=== PATIENT | female | born 1985 | race Asian ===

== ENCOUNTER 2018-04-17 11:30 | Emergency (ER) | payer MEDICAID, OTHER ==
[2018-04-17] MEDS ORDERED: PHENYLEPHRINE 0.25% NASAL SPR 15 ML As Ordered ×2 (12:26)
== END 2018-04-17 13:44 | disposition home or self-care (01) ==
LOC: M ED 11:30
DX: R04.0 Epistaxis (principal); Z79.899 Other long term (current) drug therapy
CPT/HCPCS: 99283

== ENCOUNTER 2018-06-04 18:05 | Emergency (ER) | payer MEDICAID | END 2018-06-04 21:24 | disposition home or self-care (01) | LOC: M ED 18:05 | DX: S60.00XA Contusion of unspecified finger without damage to nail, initial encounter (principal); W23.0XXA Caught, crushed, jammed, or pinched between moving objects, initial encounter; Y92.018 Other place in single-family (private) house as the place of occurrence of the external cause; Z79.899 Other long term (current) drug therapy; Z79.51 Long term (current) use of inhaled steroids | CPT/HCPCS: 73130 ==

== ENCOUNTER → 2019-10-11 | Outpatient (CLI) | payer MEDICAID ==
[~2019-10-11] MED LIST: AFRI0.056; FLON1SPR; ZYRT10CA PO
[2019-10-11 17:39] LABS: BASO % 0.4 % (0.0-1.0); EOS % 0.5 % (0.0-3.0); HEMATOCRIT 34.3 % (36.0-47.0); HEMOGLOBIN 11.9 g/dl (12.0-15.5); LYMPH # 2.2 10^3/uL (1.5-5.0); LYMPH % 25.7 % (24.0-44.0); MEAN CORPUSCULAR HEMOGLOBIN 31.2 pg (27.0-33.0); MEAN CORPUSCULAR HGB CONC 34.7 g/dl (32.0-36.5); MEAN CORPUSCULAR VOLUME 89.8 fl (80.0-96.0); MONO # 0.7 10^3/uL (0.0-0.8); NEUTROPHILS # 5.6 10^3/uL (1.5-8.5); NEUTROPHILS % 65.2 % (36.0-66.0); PLATELET COUNT, AUTOMATED 234 10^3/uL (150-450); RED BLOOD COUNT 3.82 10^6/uL (4.00-5.40); WHITE BLOOD COUNT 8.5 10^3/uL (4.0-10.0)
[2019-10-11 19:56] LABS: CHLAMYDIA DNA AMPLIFICATION NEGATIVE (NEGATIVE); GC DNA AMPLIFICATION NEGATIVE (NEGATIVE)
[2019-10-13 10:02] LABS: HIV 1&2 SCREEN CENTAUR NEGATIVE (NEGATIVE); RUBELLA IgG QUALITATIVE IMMUNE (IMMUNE)
== END ==
LOC: M SMT 14:50
PROVIDERS: ATTEND Advanced Practice Midwife
DX: Z34.81 Encounter for supervision of other normal pregnancy, first trimester (principal); Z36.89 Encounter for other specified antenatal screening

== ENCOUNTER → 2019-11-04 | Outpatient (CLI) | payer MEDICAID, SELFPAY ==
--- NOTE | 2019-11-04 11:28 | REP ---
Clinical: Anatomical evaluation. Comparison: None. Findings: Examination demonstrates a single live intrauterine in cephalic presentation. motion is identified by technologist. Placenta is noted anterior and grade zero without evidence for placenta previa or abruption. Amniotic fluid volume is normal. Cervix measures 4.4 cm in length and appears closed. No evidence for nuchal cord. Gestational age by LMP 19 weeks 0 days with ALEJANDRINA 03/30/2020 . Gestational age by current measurements 18 weeks 0 days with ALEJANDRINA 04/06/2020 . FHR equals 151 beats per minute. BPD 4.1 cm 18 weeks 2 days HC 14.6 cm 17 weeks 5 days AC 12.4 cm 18 weeks 0 days FL 2.5 cm 217 weeks 4 days HL 2.5 cm 18 weeks 0 days HC/AC ratio 1.18 Estimated weight 212th grams ( 8th percentile). Anatomical assessment demonstrates normal structures including cranium, choroid plexus, cavum, cerebellum/posterior fossa, lungs, stomach, cord insertion/three-vessel cord, kidneys/bladder, spine, and extremities. Impression: 1. Single live intrauterine in cephalic presentation demonstrating appropriate interval growth. 2. Limited evaluation of the facial features, heart/ventricular outflow tracts, and diaphragm warrants reevaluation and follow-up. Electronically Signed by Fadi Daly MD 11/04/2019 11:19 A
== END ==
LOC: M RAD 09:33
PROVIDERS: ATTEND Advanced Practice Midwife
DX: Z34.82 Encounter for supervision of other normal pregnancy, second trimester (principal); Z36.89 Encounter for other specified antenatal screening; Z3A.19 19 weeks gestation of pregnancy

== ENCOUNTER → 2019-11-08 | Outpatient (REF) | payer OTHER ==
[2019-11-08 19:15] LABS: APPEARANCE, URINE CLEAR (CLEAR); BACTERIA, URINE AUTO 1+ (NEGATIVE); BILIRUBIN, URINE AUTO NEGATIVE (NEGATIVE); BLOOD, URINE BLOOD 2+ (NEGATIVE); COLOR, URINE STRAW (YELLOW); GLUCOSE, URINE (UA) AUTO NEGATIVE (NEGATIVE); KETONE, URINE AUTO NEGATIVE (NEGATIVE); LEUKOCYTE ESTERASE, URINE AUTO NEGATIVE (NEGATIVE); NITRITE, URINE AUTO NEGATIVE (NEGATIVE); PROTEIN, URINE AUTO NEGATIVE (NEGATIVE); RBC, URINE AUTO 2 /HPF (0-3); SPECIFIC GRAVITY URINE AUTO 1.009 (1.002-1.035); SQUAMOUS EPITHELIAL CELL UR AU 2 /HPF (0-6); UROBILINOGEN, URINE AUTO 0.2 mg/dL (0.0-2.0); WBC, URINE AUTO 1 /HPF (0-3)
== END ==
LOC: M SFHCPLAZ 17:01
PROVIDERS: ATTEND Obstetrics & Gynecology
DX: R31.9 Hematuria, unspecified (principal)

== ENCOUNTER → 2019-11-22 | Outpatient (CLI) | payer MEDICAID ==
--- NOTE | 2019-11-22 10:08 | REP ---
Clinical: Anatomical evaluation. Comparison: 11/04/2019 Findings: Examination demonstrates a single live intrauterine in transverse (head to maternal right) presentation. motion is identified by technologist. Placenta is noted posterior and grade zero without evidence for placenta previa or abruption. Amniotic fluid volume is normal. Cervix measures 4.4 cm in length and appears closed. No evidence for nuchal cord. Gestational age by LMP 21 weeks 4 days with ALEJANDRINA 03/30/2020 . Gestational age by current measurements 20 weeks 5 days with ALEJANDRINA 04/05/2020 . FHR equals 144 beats per minute. Estimated weight 373 grams ( 19th percentile). Anatomical assessment demonstrates normal structures including cranium, choroid plexus, cavum, cerebellum/posterior fossa, facial features, lungs, ventricular outflow tracts, diaphragm, stomach, cord insertion/three-vessel cord, kidneys/bladder, and extremities. Impression: 1. Single live intrauterine in transverse lie demonstrating appropriate interval growth. 2. Limited evaluation of the heart again noted. Remainder of the anatomical assessment is complete and normal. Electronically Signed by Fadi Daly MD 11/22/2019 10:00 A
== END ==
LOC: M RAD 09:00
PROVIDERS: ATTEND Obstetrics & Gynecology
DX: Z34.92 Encounter for supervision of normal pregnancy, unspecified, second trimester (principal); Z3A.21 21 weeks gestation of pregnancy

== ENCOUNTER → 2019-12-10 | Outpatient (REF) | payer OTHER | LOC: M SFHCWAGY 17:07 | PROVIDERS: ATTEND Advanced Practice Midwife | DX: Z34.92 Encounter for supervision of normal pregnancy, unspecified, second trimester (principal); Z36.89 Encounter for other specified antenatal screening ==

== ENCOUNTER → 2019-12-15 | Outpatient (CLI) | payer OTHER ==
--- NOTE | 2019-12-16 02:22 | REP ---
Clinical: Anatomical evaluation. Comparison: 11/22/2019 . Findings: Examination demonstrates a single live intrauterine in breech presentation. motion is identified by technologist. Placenta is noted posterior and grade I without evidence for placenta previa or abruption. Amniotic fluid volume is normal. Cervix measures 5.6 cm in length and appears closed. Nuchal cord cannot be excluded. Gestational age by LMP 24 weeks 6 days with ALEJANDRINA 03/30/2020 . Gestational age by current measurements 23 weeks 6 days with ALEJANDRINA 04/06/2020 . FHR equals 158 beats per minute. Estimated weight 678 grams ( 27th percentile). Anatomical assessment demonstrates normal structures including cranium, choroid plexus, cavum, cerebellum/posterior fossa, facial features, lungs, four-chamber heart/ventricular outflow tracts, diaphragm, stomach, cord insertion/three-vessel cord, kidneys/bladder, spine, and extremities. Impression: Single live intrauterine in breech presentation demonstrating appropriate interval growth. 2. Nuchal cord cannot be excluded. 3. Anatomical assessment is complete and normal. Electronically Signed by Fadi Daly MD 12/16/2019 02:13 A
== END ==
LOC: M RAD 12:27
PROVIDERS: ATTEND Advanced Practice Midwife
DX: O32.1XX0 Maternal care for breech presentation, not applicable or unspecified (principal); Z36.89 Encounter for other specified antenatal screening; Z3A.24 24 weeks gestation of pregnancy

== ENCOUNTER → 2019-12-27 | Outpatient (CLI) | payer OTHER ==
[2019-12-27 13:41] LABS: HEMATOCRIT 34.3 % (36.0-47.0); MEAN CORPUSCULAR HEMOGLOBIN 30.9 pg (27.0-33.0); MEAN CORPUSCULAR HGB CONC 32.1 g/dl (32.0-36.5); MEAN CORPUSCULAR VOLUME 96.3 fl (80.0-96.0); PLATELET COUNT, AUTOMATED 212 10^3/uL (150-450); RED BLOOD COUNT 3.56 10^6/uL (4.00-5.40); WHITE BLOOD COUNT 9.4 10^3/uL (4.0-10.0)
== END ==
LOC: M PLALAB 11:00
PROVIDERS: ATTEND Advanced Practice Midwife
DX: Z34.82 Encounter for supervision of other normal pregnancy, second trimester (principal); Z36.89 Encounter for other specified antenatal screening

== ENCOUNTER → 2020-01-14 | Outpatient (REF) | payer OTHER | LOC: M SFHCWAGY 13:36 | PROVIDERS: ATTEND Advanced Practice Midwife | DX: Z36.89 Encounter for other specified antenatal screening (principal); Z3A.00 Weeks of gestation of pregnancy not specified ==

== ENCOUNTER → 2020-02-07 | Outpatient (CLI) | payer OTHER ==
[2020-02-07 20:13] LABS: BASO % 0.3 % (0.0-1.0); EOS % 0.4 % (0.0-3.0); HEMATOCRIT 36.5 % (36.0-47.0); LYMPH # 2.1 10^3/uL (1.5-5.0); LYMPH % 21.8 % (24.0-44.0); MEAN CORPUSCULAR HGB CONC 32.9 g/dl (32.0-36.5); MEAN CORPUSCULAR VOLUME 94.3 fl (80.0-96.0); MONO % 10.2 % (0.0-5.0); NEUTROPHILS # 6.3 10^3/uL (1.5-8.5); NEUTROPHILS % 66.4 % (36.0-66.0); PLATELET COUNT, AUTOMATED 207 10^3/uL (150-450); RED BLOOD COUNT 3.87 10^6/uL (4.00-5.40); WHITE BLOOD COUNT 9.5 10^3/uL (4.0-10.0)
[2020-02-07 20:41] LABS: BLOOD UREA NITROGEN 12 MG/DL (7-18); CALCIUM LEVEL 8.7 MG/DL (8.5-10.1); CARBON DIOXIDE LEVEL 30 MEQ/L (21-32); CHLORIDE LEVEL 104 MEQ/L (98-107); CREATININE FOR GFR 0.29 MG/DL (0.55-1.30); GLOMERULAR FILTRATION RATE > 60.0 (>60); GLUCOSE, FASTING 92 MG/DL (70-100); POTASSIUM SERUM 4.1 MEQ/L (3.5-5.1); SODIUM LEVEL 137 MEQ/L (136-145)
== END ==
LOC: M WUC 15:35
PROVIDERS: ATTEND Nurse Practitioner Family
DX: R30.0 Dysuria (principal); R31.9 Hematuria, unspecified; Z33.1 Pregnant state, incidental

== ENCOUNTER → 2020-02-29 | Outpatient (REF) | payer OTHER | LOC: M SFHCWAGY 16:59 | PROVIDERS: ATTEND Advanced Practice Midwife | DX: Z34.93 Encounter for supervision of normal pregnancy, unspecified, third trimester (principal); Z36.89 Encounter for other specified antenatal screening ==

== ENCOUNTER 2020-04-05 12:14 | Inpatient (IN) | payer OTHER ==
[~2020-04-05] VITALS: Ht 162.6 cm; Wt 80.7 kg
[2020-04-05 12:27] VITALS: BP 107/60
[2020-04-05] MEDS ORDERED: miSOPROStol 50 MCG 1/2 TAB (S0191) PO ONE (13:00)
[2020-04-05 13:47] VITALS: BP 99/56
[2020-04-05 13:53] LABS: HEMATOCRIT 38.2 % (36.0-47.0); HEMOGLOBIN 13.3 g/dl (12.0-15.5); MEAN CORPUSCULAR HEMOGLOBIN 31.2 pg (27.0-33.0); MEAN CORPUSCULAR HGB CONC 34.8 g/dl (32.0-36.5); MEAN CORPUSCULAR VOLUME 89.7 fl (80.0-96.0); PLATELET COUNT, AUTOMATED 179 10^3/uL (150-450); RED BLOOD COUNT 4.26 10^6/uL (4.00-5.40); WHITE BLOOD COUNT 7.1 10^3/uL (4.0-10.0)
--- NOTE | 2020-04-05 15:40 | HPE ---
DATE OF ADMISSION: 04/05/2020 Maddy Ledezma is a 34-year-old, 2, para 1-0-0-1. She is at 40-6/7 weeks gestation with an estimated date of confinement (EDC) of 03/30/2020 based on last menstrual period and confirmed by first-trimester ultrasound. She presents to labor and delivery today with a report of possible rupture of membranes at approximately 0900. She denies vaginal bleeding. She denies any continued leakage, and her fetus has been active. She denies any painful contractions. She does report some mild cramping. Her care was initiated at [facility] in the first trimester. Her course has been uncomplicated. OBSTETRICAL HISTORY: On , 41 weeks gestation, spontaneous vaginal delivery following induction of labor for an 8-pounds 2-ounce female. OBSTETRIC LABORATORIES: O positive, antibody screen negative, RPR negative, rubella immune, HIV negative, hepatitis C antibody not negative, hepatitis B surface antigen negative, gonorrhea and chlamydia negative. Gestational diabetic screening normal at 108. In October 2019, urine culture no growth. GBS negative. PAST MEDICAL HISTORY: Noncontributory. SURGERIES: Bladder surgery and polyp removal. FAMILY HISTORY: Stomach cancer. SOCIAL HISTORY: The patient is . Her is supportive and at bedside. She is a nonsmoker. Denies alcohol and drug use. No history of sexually transmitted infections, and she denies history of abuse, physical, sexual, or emotional. ALLERGIES: No known drug allergies. CURRENT MEDICATIONS: vitamins. OBJECTIVE: Pulse 106, blood pressure (BP) 107/60. Temperature and respirations have not been recorded as of yet. heart rate is 150 with moderate variability, positive accelerations, negative decelerations. There is an occasional contraction. Her abdomen is gravid, cephalic presentation confirmed with Hai's and bedside ultrasound. Estimated weight 7 pounds 11 ounces to 8 pounds 1 ounce. Sterile speculum exam: Negative pooling, negative Nitrazine, and negative ferning. Sterile vaginal exam: 2, 75, and -2 station. ASSESSMENT: Intrauterine at 40-6/7 weeks. heart rate is category 1. Post-term . PLAN: Offered induction of labor to the patient for post-term . She is on the schedule for tomorrow for induction of labor. She desires to stay today and get the induction started. I did review risks, benefits, alternatives with the patient. All of her questions have been answered regarding induction. Routine labs. Out of bed ad bc. Regular diet right now. One dose of misoprostol 50 mcg by mouth and then likely start intravenous (IV) Pitocin for labor induction. The patient will likely consider an epidural for her labor coping, and I will consider assisted rupture of membranes for labor augmentation once epidural is placed. The patient has been verbally consented for emergency surgery and blood products if they are necessary. I do anticipate cervical ripening, labor, and a spontaneous vaginal delivery.
[2020-04-05 15:58] VITALS: BP 92/61
[2020-04-05] MEDS ORDERED: OXYTOCIN DRIP 30 UNITS in IV 1 EA IV SCH (17:00)
[2020-04-05] MEDS ORDERED: LR 1,000 ML IV SCH (17:00)
[2020-04-05 17:57] VITALS: BP 105/65
[2020-04-05] MEDS ORDERED: FENTANYL 2MCG/ML ROPIVACAINE 0.2% IN 0.9% NACL 100ML IVBAG As Ordered ONE (22:17)
[2020-04-05] MEDS ORDERED: LACTATED RINGER'S 1000 ML IV ONE (22:30)
[2020-04-06] MEDS ORDERED: OXYTOCIN DRIP 30 UNITS in IV 1 EA IV SCH (01:26)
[2020-04-06] MEDS ORDERED: DIBUCAINE 1% OINTMENT 30GM TOP PRN (01:30)
[2020-04-06] MEDS ORDERED: METHYLERGONOVINE MALEATE 0.2 MG TAB PO PRN (01:30)
[2020-04-06] MEDS ORDERED: DOCUSATE SODIUM 100 MG CAP PO PRN (01:30)
[2020-04-06] MEDS ORDERED: ACETAMINOPHEN 500 MG TAB PO PRN (01:30)
[2020-04-06] MEDS ORDERED: ACETAMINOPHEN TAB 650MG DOSE (2X325MG) PO PRN (01:30)
[2020-04-06] MEDS ORDERED: MEASLES,MUMPS,RUBELLA VACCINE INJ (MMR-II) (90707) SC SCH (01:30)
[2020-04-06] MEDS ORDERED: IBUPROFEN 800 MG TAB PO PRN (01:30)
[2020-04-06] MEDS ORDERED: RHOGAM 300 MCG (1500 IU) INJ (J2790) IM SCH (01:30)
[2020-04-06] MEDS ORDERED: IBUPROFEN 600 MG TAB PO PRN (01:30)
[2020-04-06] MEDS ORDERED: EPIDURAL COMMENT XX SCH (02:15)
[2020-04-06] MEDS ORDERED: ONDANSETRON 4MG/2ML VIAL IV PRN (02:15)
[2020-04-06] MEDS ORDERED: diphenhydrAMINE 50MG/ML VIAL (J1200) IV PRN (02:15)
[2020-04-06] MEDS ORDERED: FENTANYL/ROPIVACAINE/NACL BAG 100 ML EPIDURAL SCH (02:15)
[2020-04-06] MEDS ORDERED: EPIDURAL/PCA KEYS XX PRN (02:15)
[2020-04-06] MEDS ORDERED: LACTATED RINGER'S 1000 ML IV PRN (02:15)
[2020-04-06] MEDS ORDERED: ePHEDrine SULFATE 25 MG/5 ML(5MG/ML) SYRINGE IV PRN (02:15)
[2020-04-06] MEDS ORDERED: REFRIGERATOR IV KEYS XX PRN (02:15)
[2020-04-06] MEDS ORDERED: NALOXONE INJ 0.4MG/1ML VIAL (J2310 PER 1MG) IV PRN (02:15)
[2020-04-06 04:20] VITALS: BP 101/59
[2020-04-06 06:07] VITALS: BP 103/50
--- NOTE | 2020-04-06 07:10 | DN ---
DATE OF DELIVERY: 04/06/2020 Maddy Ledezma is a 34-year-old, 2, para 2-0-0-2 now, who was admitted to labor and delivery for induction of labor due to postterm . One dose of misoprostol was used, and intravenous (IV) Pitocin was started. She did use an epidural for her labor coping. She had spontaneous rupture of membranes for clear fluid at 2333 hours. She reached complete dilation at 0028 hours. She pushed to a normal spontaneous vaginal delivery of a live female in right occiput anterior (LAURA) position with restitution to right occiput transverse (ROT) position at 0049 hours. There was no nuchal cord. The shoulders delivered spontaneously, and the corpus immediately followed. The female was placed on the maternal abdomen crying and active. Her mouth and nares were bulb suctioned. The cord was clamped times two once pulsations ceased and cut by the father of the baby under my direction. Spontaneous expulsion of an intact placenta with three-vessel cord by Schultze mechanism was at 0052 hours. Uterine hemostasis achieved with IV Pitocin rapid infusion and uterine fundal massage. Estimated blood loss 400 mL. Perineum and vagina inspected. Noted to have a second-degree midline laceration. The laceration was repaired with #3-0 Vicryl Rapide in the usual fashion. [place]rs[place]ine female weighed 8 pounds 15 ounces, 4050 grams, scores 8 and 9. The family is going to bottle feed their daughter, and they have named her Junie. At the close of delivery, lap counts, needle counts, and instrument counts were correct and verified.
[2020-04-06] MEDS: PRENATAL VITAMINS CHEWABLE TABLET PO SCH (08:13)
[2020-04-06 18:15] VITALS: BP 99/56
[2020-04-07 05:19] VITALS: BP 98/54
[2020-04-07] MEDS: PRENATAL VITAMINS CHEWABLE TABLET PO SCH (08:00)
== END 2020-04-07 13:10 | disposition home or self-care (01) | DRG 560 ==
LOC: M LDO 12:14 → M LDI 12:53 → M OBS 04-06 03:31
PROVIDERS: ADMIT Advanced Practice Midwife; ATTEND Advanced Practice Midwife
PROC: 10E0XZZ Delivery of Products of Conception, External Approach (ICD-10-PCS; principal; 2020-04-06)
PROC: 3E0P7GC Introduction of Other Therapeutic Substance into Female Reproductive, Via Natural or Artificial Opening (ICD-10-PCS; 2020-04-06)
PROC: 0KQM0ZZ Repair Perineum Muscle, Open Approach (ICD-10-PCS; 2020-04-06)
DX: O48.0 Post-term pregnancy (principal); Z3A.40 40 weeks gestation of pregnancy; O70.1 Second degree perineal laceration during delivery; Z37.0 Single live birth

== ENCOUNTER → 2020-07-13 | Outpatient (REF) | payer OTHER | LOC: M SFHCWAGY 15:11 | PROVIDERS: ATTEND Advanced Practice Midwife | DX: R30.0 Dysuria (principal) ==

== ENCOUNTER → 2021-10-08 | Outpatient (REF) | payer OTHER ==
[2021-10-08 12:24] LABS: APPEARANCE, URINE CLEAR (CLEAR); BACTERIA, URINE AUTO NEGATIVE (NEGATIVE); BILIRUBIN, URINE AUTO NEGATIVE (NEGATIVE); BLOOD, URINE BLOOD 1+ (NEGATIVE); COLOR, URINE YELLOW (YELLOW); GLUCOSE, URINE (UA) AUTO NEGATIVE (NEGATIVE); KETONE, URINE AUTO NEGATIVE (NEGATIVE); LEUKOCYTE ESTERASE, URINE AUTO NEGATIVE (NEGATIVE); MUCUS, URINE SMALL (NEGATIVE); NITRITE, URINE AUTO NEGATIVE (NEGATIVE); PROTEIN, URINE AUTO NEGATIVE (NEGATIVE); RBC, URINE AUTO 1 /HPF (0-3); SPECIFIC GRAVITY URINE AUTO 1.017 (1.002-1.035); SQUAMOUS EPITHELIAL CELL UR AU 1 /HPF (0-6); UROBILINOGEN, URINE AUTO 0.2 mg/dL (0.0-2.0); WBC, URINE AUTO 1 /HPF (0-3)
== END ==
LOC: M LAB REF 11:36
PROVIDERS: ATTEND Physician Assistant Medical
DX: R31.9 Hematuria, unspecified (principal)

== ENCOUNTER 2022-07-02 08:25 | Emergency (ER) | payer OTHER ==
[~2022-07-02] VITALS: Ht 157.5 cm; Wt 54.8 kg
[~2022-07-02 08:25] MED LIST changes: -AZIT500T5 PO
[2022-07-02 11:28] LABS: BASO % 0.3 % (0.0-1.0); EOS % 0.2 % (0.0-3.0); HEMATOCRIT 38.9 % (36.0-47.0); HEMOGLOBIN 12.4 g/dl (12.0-15.5); LYMPH # 1.2 10^3/uL (1.5-5.0); LYMPH % 18.9 % (24.0-44.0); MEAN CORPUSCULAR HEMOGLOBIN 27.6 pg (27.0-33.0); MEAN CORPUSCULAR HGB CONC 31.9 g/dl (32.0-36.5); MEAN CORPUSCULAR VOLUME 86.6 fl (80.0-96.0); MONO # 0.5 10^3/uL (0.0-0.8); NEUTROPHILS # 4.7 10^3/uL (1.5-8.5); NEUTROPHILS % 73.4 % (36.0-66.0); PLATELET COUNT, AUTOMATED 204 10^3/uL (150-450); RED BLOOD COUNT 4.49 10^6/uL (4.00-5.40); WHITE BLOOD COUNT 6.4 10^3/uL (4.0-10.0)
[2022-07-02 12:09] LABS: ALBUMIN 3.7 GM/DL (3.2-5.2); ALT/SGPT 20 U/L (12-78); BILIRUBIN,DIRECT 0.2 MG/DL (0.0-0.2); BILIRUBIN,TOTAL 1.2 MG/DL (0.2-1.0); BLOOD UREA NITROGEN 10 MG/DL (7-18); CALCIUM LEVEL 9.3 MG/DL (8.5-10.1); CARBON DIOXIDE LEVEL 26 MEQ/L (21-32); CHLORIDE LEVEL 107 MEQ/L (98-107); CREATININE FOR GFR 0.51 MG/DL (0.55-1.30); GLOMERULAR FILTRATION RATE > 60.0 (>60); GLUCOSE, FASTING 89 MG/DL (70-100); LIPASE 94 U/L (73-393); POTASSIUM SERUM 3.7 MEQ/L (3.5-5.1); SODIUM LEVEL 139 MEQ/L (136-145); TOTAL PROTEIN 7.6 GM/DL (6.4-8.2)
[2022-07-02 12:32] LABS: HCG, SERUM QUALITATIVE NEGATIVE (NEGATIVE)
[2022-07-02] MEDS ORDERED: ISOVUE-370 76% 100ML VIAL As Ordered ONE (12:47)
[2022-07-02 14:08] VITALS: BP 108/59
== END 2022-07-02 14:57 | disposition home or self-care (01) ==
LOC: M ED 10:35
DX: K52.9 Noninfective gastroenteritis and colitis, unspecified (principal); R19.5 Other fecal abnormalities
CPT/HCPCS: 74177; 80048; 80076; 81001; 83690; 84703; 85025; 86850; 86900; 86901; 99284; Q9967

== ENCOUNTER → 2022-07-02 | Outpatient (REF) | payer OTHER ==
[~2022-07-02] MED LIST changes: +AZIT500T5 PO
== END ==
LOC: M LAB REF 19:41
PROVIDERS: ATTEND Physician Assistant Medical
DX: R19.5 Other fecal abnormalities (principal)